=== PATIENT | female | born 1995 | race Caucasian/White ===

== ENCOUNTER 2017-09-11 05:26 | Emergency (ER) | payer OTHER ==
[~2017-09-11] VITALS: Ht 160 cm; Wt 85.0 kg
[2017-09-11] MEDS ORDERED: MAGN250T7 PO (05:36)
[2017-09-11] MEDS ORDERED: B2100TAB PO (05:36)
[2017-09-11] MEDS ORDERED: TYLE325T5 PO (05:36)
[2017-09-11] MEDS ORDERED: PROZ20CA11 PO (05:36)
[2017-09-11] MEDS ORDERED: NS 500 ML IV ONE (06:45)
[2017-09-11] MEDS ORDERED: PROMETHAZINE INJ 25 MG/ML VIAL (J2550) IV ONE (06:45)
[2017-09-11 06:54] LABS: BASO # 0.1 10^3/uL (0.0-0.2); BASO % 0.4 % (0.0-1.0); EOS # 0.3 10^3/uL (0.0-0.50); EOS % 2.6 % (0.0-3.0); IMMATURE GRANULOCYTE % 0.7 % (0-0); LYMPH # 2.8 10^3/uL (1.5-6.5); LYMPH % 20.8 % (24.0-44.0); MEAN CORPUSCULAR HEMOGLOBIN 31.3 pg (27.0-33.0); MEAN CORPUSCULAR HGB CONC 34.7 g/dl (32.0-36.5); MEAN CORPUSCULAR VOLUME 90.1 fl (80.0-96.0); MONO # 0.8 10^3/uL (0.0-0.8); MONO % 5.9 % (0.0-5.0); NEUTROPHILS # 9.2 10^3/uL (1.8-7.7); NEUTROPHILS % 69.6 % (36.0-66.0); PLATELET COUNT, AUTOMATED 365 10^3/uL (150-450); RED CELL DISTRIBUTION WIDTH 12.5 % (11.5-14.5); WHITE BLOOD COUNT 13.2 10^3/uL (4.0-10.0)
[2017-09-11] MEDS ORDERED: diphenhydrAMINE INJ 50MG/ML VIAL (J1200) IV ONE (07:00)
[2017-09-11 07:36] LABS: ALBUMIN 3.8 GM/DL (3.2-5.2); ALBUMIN/GLOBULIN RATIO 0.95 (1.00-1.93); ALKALINE PHOSPHATASE 94 U/L (45-117); ALT/SGPT 34 U/L (12-78); ANION GAP 7 MEQ/L (8-16); AST/SGOT 18 U/L (7-37); BILIRUBIN,TOTAL 0.3 MG/DL (0.2-1.0); BLOOD UREA NITROGEN 11 MG/DL (7-18); CALCIUM LEVEL 9.1 MG/DL (8.5-10.1); CARBON DIOXIDE LEVEL 28 MEQ/L (21-32); CHLORIDE LEVEL 104 MEQ/L (98-107); CREATININE FOR GFR 0.68 MG/DL (0.55-1.02); GLOMERULAR FILTRATION RATE > 60.0 (>60); GLUCOSE, FASTING 93 MG/DL (70-105); HCG, SERUM QUANTITATIVE 10485 MIU/ML; POTASSIUM SERUM 3.8 MEQ/L (3.5-5.1); SODIUM LEVEL 139 MEQ/L (136-145); TOTAL PROTEIN 7.8 GM/DL (6.4-8.2)
[2017-09-11] MEDS ORDERED: DRAM50CH4 PO ×2 (08:29→08:49)
[2017-09-11] MEDS ORDERED: KEFL500C17 PO ×2 (08:36→08:49)
--- NOTE | 2017-09-11 08:36 | REP ---
FIRST TRIMESTER ULTRASOUND: HISTORY: Abdominal pain. A single intrauterine is present. [place]-rump length is 0.2 cm corresponding to a gestational age of 5 weeks 5 days. heart rate is 106 beats per minute. There is no subchorionic hemorrhage. A 2.5 cm hemorrhagic cyst is present in the left ovary. The right ovary is normal in appearance. There is no fluid in the cul-de-sac. IMPRESSION: A single intrauterine is present with a gestational age of 5 weeks 5 days. A repeat examination is recommended at 19-20 weeks for further evaluation. Signed by Joaquin Solomon MD 09/11/2017 08:38 A
[2017-09-11 08:48] VITALS: BP 125/71
== END 2017-09-11 08:51 | disposition home or self-care (01) ==
LOC: M ED 05:26
DX: O26.891 Other specified pregnancy related conditions, first trimester (principal); G43.909 Migraine, unspecified, not intractable, without status migrainosus; Z3A.00 Weeks of gestation of pregnancy not specified
CPT/HCPCS: 76801; 76817; 80053; 81001; 83690; 84702; 85025; 93976; 96361; 96374; 96375; 99284; J1200

== ENCOUNTER 2018-03-16 06:27 | Inpatient (IN) | payer OTHER ==
[2018-03-16] MEDS: LR 1,000 ML IV ×2 (08:20→16:38)
[2018-03-16 08:30] LABS: BASO % 0.2 % (0.0-1.0); EOS # 0.2 10^3/uL (0.0-0.50); EOS % 2.2 % (0.0-3.0); HEMOGLOBIN 12.7 g/dl (12.0-15.5); IMMATURE GRANULOCYTE % 0.6 % (0-3.0); LYMPH # 2.5 10^3/uL (1.5-6.5); MEAN CORPUSCULAR HEMOGLOBIN 30.6 pg (27.0-33.0); MEAN CORPUSCULAR HGB CONC 33.4 g/dl (32.0-36.5); MEAN CORPUSCULAR VOLUME 91.6 fl (80.0-96.0); MONO % 8.7 % (0.0-5.0); NEUTROPHILS # 7.2 10^3/uL (1.8-7.7); NEUTROPHILS % 65.3 % (36.0-66.0); PLATELET COUNT, AUTOMATED 284 10^3/uL (150-450); RED BLOOD COUNT 4.15 10^6/uL (4.00-5.40); RED CELL DISTRIBUTION WIDTH 14.1 % (11.5-14.5)
[2018-03-16] MEDS: NIFEdipine 10 MG CAP PO ×3 (08:31→20:42)
[2018-03-16] MEDS: AMPICILLIN SOD 2 GM in APPROPRIATE DILUENT 20 ML IV (08:33)
[2018-03-16 08:38] LABS: AMORPHOUS SEDIMENT SMALL (NEGATIVE); APPEARANCE, URINE HAZY (CLEAR); BACTERIA, URINE AUTO NEGATIVE (NEGATIVE); BILIRUBIN, URINE AUTO NEGATIVE (NEGATIVE); BLOOD, URINE BLOOD NEGATIVE (NEGATIVE); COLOR, URINE YELLOW (YELLOW); GLUCOSE, URINE (UA) AUTO NEGATIVE (NEGATIVE); KETONE, URINE AUTO NEGATIVE (NEGATIVE); LEUKOCYTE ESTERASE, URINE AUTO 2+ (NEGATIVE); MUCUS, URINE SMALL (NEGATIVE); NITRITE, URINE AUTO NEGATIVE (NEGATIVE); PROTEIN, URINE AUTO NEGATIVE (NEGATIVE); RBC, URINE AUTO 2 /HPF (0-3); SPECIFIC GRAVITY URINE AUTO 1.006 (1.002-1.035); SQUAMOUS EPITHELIAL CELL UR AU 4 /HPF (0-6); UROBILINOGEN, URINE AUTO 0.2 mg/dL (0.0-2.0); WBC, URINE AUTO 4 /HPF (0-3)
[2018-03-16] MEDS: BETAMETHASONE SOLUSPAN 6MG/ML INJ 5ML (J0702) IM (08:40)
[2018-03-16] MEDS: LACTATED RINGER'S 1000 ML IV (08:52)
[2018-03-16] MEDS: FAMOTIDINE 20 MG TAB PO (09:01)
[2018-03-16] MEDS: AMPICILLIN SOD 1 GM in APPROPRIATE DILUENT 10 ML IV ×3 (12:35→20:41)
[2018-03-16] MEDS: PRENATAL VITAMINS CHEWABLE TABLET PO (12:38)
[2018-03-16] MEDS: FERROUS SULFATE 325MG TAB PO (12:39)
[2018-03-16] MEDS: ACETAMINOPHEN TAB 650MG DOSE (2X325MG) PO ×2 (15:53→20:40)
[2018-03-16] MEDS: DOCUSATE SODIUM 100 MG CAP PO (22:29)
[2018-03-17] MEDS: AMPICILLIN SOD 1 GM in APPROPRIATE DILUENT 10 ML IV ×3 (00:30→08:30)
[2018-03-17] MEDS: LR 1,000 ML IV ×5 (02:20→17:28)
[2018-03-17] MEDS: NIFEdipine 10 MG CAP PO ×4 (03:01→19:53)
[2018-03-17] MEDS: FAMOTIDINE 20 MG TAB PO (08:46)
[2018-03-17] MEDS: FERROUS SULFATE 325MG TAB PO (08:48)
[2018-03-17] MEDS: BETAMETHASONE SOLUSPAN 6MG/ML INJ 5ML (J0702) IM (08:58)
[2018-03-17] MEDS: DOCUSATE SODIUM 100 MG CAP PO (09:12)
[2018-03-17] MEDS: PRENATAL VITAMINS CHEWABLE TABLET PO (09:12)
[2018-03-18] MEDS: NIFEdipine 10 MG CAP PO ×2 (02:00→09:17)
[2018-03-18] MEDS: FERROUS SULFATE 325MG TAB PO (09:16)
[2018-03-18] MEDS: FAMOTIDINE 20 MG TAB PO (09:16)
[2018-03-18] MEDS: PRENATAL VITAMINS CHEWABLE TABLET PO (09:16)
[2018-03-18] MEDS ORDERED: NIFEdipine 30 MG XL TAB PO (21:00)
== END 2018-03-18 10:40 | disposition home or self-care (01) | DRG 778 ==
LOC: M LDO 06:27 → M OBS 03-17 10:07 → M LDI 07:40
DX: O60.03 Preterm labor without delivery, third trimester (principal); E66.9 Obesity, unspecified; Z3A.33 33 weeks gestation of pregnancy; O99.214 Obesity complicating childbirth; O99.344 Other mental disorders complicating childbirth; O99.62 Diseases of the digestive system complicating childbirth; F41.9 Anxiety disorder, unspecified; F32.9 Major depressive disorder, single episode, unspecified; K21.9 Gastro-esophageal reflux disease without esophagitis; Z88.8 Allergy status to other drugs, medicaments and biological substances; Z79.899 Other long term (current) drug therapy

== ENCOUNTER 2018-04-20 22:07 | Inpatient (IN) | payer OTHER ==
[2018-04-20] MEDS: LACTATED RINGER'S 1000 ML IV (23:03)
[2018-04-20] MEDS ORDERED: LR 1,000 ML IV (23:03)
[2018-04-20 23:14] LABS: HEMATOCRIT 35.5 % (36.0-47.0); HEMOGLOBIN 12.5 g/dl (12.0-15.5); MEAN CORPUSCULAR HEMOGLOBIN 31.4 pg (27.0-33.0); MEAN CORPUSCULAR HGB CONC 35.2 g/dl (32.0-36.5); MEAN CORPUSCULAR VOLUME 89.2 fl (80.0-96.0); PLATELET COUNT, AUTOMATED 281 10^3/uL (150-450); RED BLOOD COUNT 3.98 10^6/uL (4.00-5.40); RED CELL DISTRIBUTION WIDTH 13.4 % (11.5-14.5); WHITE BLOOD COUNT 14.4 10^3/uL (4.0-10.0)
[2018-04-20] MEDS ORDERED: OXYTOCIN 30 UNITS IN 0.9% NaCl 500ML IV BAG (J2590) As Ordered (23:37)
[2018-04-20] MEDS ORDERED: FENTANYL 2MCG/ML ROPIVACAINE 0.2% IN 0.9% NACL 200ML IVBAG As Ordered (23:37)
[2018-04-21] MEDS ORDERED: FENTANYL/ROPIVACAINE/NACL BAG 200 ML EPIDURAL (01:00)
[2018-04-21] MEDS ORDERED: EPIDURAL COMMENT XX (01:00)
[2018-04-21] MEDS ORDERED: EPIDURAL/PCA KEYS XX (01:00)
[2018-04-21] MEDS ORDERED: LACTATED RINGER'S 1000 ML IV (01:00)
[2018-04-21] MEDS ORDERED: REFRIGERATOR IV KEYS XX (01:00)
[2018-04-21] MEDS ORDERED: ONDANSETRON 4MG/2ML VIAL (J2405) IV (01:00)
[2018-04-21] MEDS ORDERED: NALOXONE INJ 0.4 MG/1 ML VIAL (J2310) IV (01:00)
[2018-04-21] MEDS ORDERED: diphenhydrAMINE INJ 50MG/ML VIAL (J1200) IV (01:00)
[2018-04-21] MEDS ORDERED: ePHEDrine SULFATE 25 MG/5 ML(5MG/ML) SYRINGE IV (01:00)
[2018-04-21] MEDS ORDERED: OXYTOCIN DRIP 30 UNITS in APPROPRIATE DILUENT 1 EA IV (05:00)
[2018-04-21] MEDS ORDERED: BICITRA 30ML SOLN UDC PO (07:00)
[2018-04-21] MEDS ORDERED: BUPIVACAINE HCL 0.25% 10 ML VIAL SC (07:15)
[2018-04-21] MEDS ORDERED: ACETAMINOPHEN 650 MG SUPP PR (07:15)
[2018-04-21] MEDS ORDERED: AZITHROMYCIN INJ 500 MG, VIAL MATE ADAPTER 1 EACH in D5W 250 ML IV (07:15)
[2018-04-21 07:41] LABS: CORD GAS O2 SAT A 63.3 %
[2018-04-21 07:42] LABS: CORD GAS ABE V -3.5; CORD GAS HCO3 V 21.9 MEQ/L; CORD GAS O2 SAT V 80.9 %; CORD GAS PCO2 V 40.9 mmHg; CORD GAS PH V 7.347 UNITS; CORD GAS PO2 V 35.8 mmHg; CORD GAS SBC V 21.2 MEQ/L; CORD GAS TCO2 V 23.2 MEQ/L
[2018-04-21 07:44] LABS: CORD GAS ABE A -3.4; CORD GAS HCO3 A 23.8 MEQ/L; CORD GAS PCO2 A 50.8 mmHg; CORD GAS PH A 7.289 UNITS; CORD GAS SBC A 20.8 MEQ/L; CORD GAS TCO2 A 25.4 MEQ/L
[2018-04-21] MEDS ORDERED: METHYLERGONOVINE MALEATE 0.2 MG TAB PO (08:00)
[2018-04-21] MEDS ORDERED: DOCUSATE SODIUM 100 MG CAP PO (08:00)
[2018-04-21] MEDS ORDERED: MEASLES,MUMPS,RUBELLA VACCINE INJ (MMR-II) (90707) SC (08:00)
[2018-04-21] MEDS ORDERED: RHOGAM 300 MCG (1500 IU) INJ (J2790) IM (08:00)
[2018-04-21] MEDS ORDERED: DIBUCAINE 1% OINTMENT 30GM TOP (08:00)
[2018-04-21] MEDS ORDERED: ANUSOL HC CREAM 30GM TOP (08:00)
[2018-04-21] MEDS: PRENATAL VITAMINS CHEWABLE TABLET PO (12:02)
[2018-04-21] MEDS: ACETAMINOPHEN 500 MG TAB PO (12:03)
[2018-04-21] MEDS: SERTRALINE HCL 25 MG TABLET PO (12:26)
[2018-04-21] MEDS: IBUPROFEN 800 MG TAB PO (17:23)
[2018-04-22 07:33] LABS: HEMATOCRIT 31.2 % (36.0-47.0); HEMOGLOBIN 11.1 g/dl (12.0-15.5); MEAN CORPUSCULAR HEMOGLOBIN 31.8 pg (27.0-33.0); MEAN CORPUSCULAR HGB CONC 35.6 g/dl (32.0-36.5); MEAN CORPUSCULAR VOLUME 89.4 fl (80.0-96.0); PLATELET COUNT, AUTOMATED 266 10^3/uL (150-450); RED BLOOD COUNT 3.49 10^6/uL (4.00-5.40); RED CELL DISTRIBUTION WIDTH 14.1 % (11.5-14.5); WHITE BLOOD COUNT 14.5 10^3/uL (4.0-10.0)
[2018-04-22] MEDS: MOM 30ML SUSPENSION UDC PO (08:16)
[2018-04-22] MEDS: PRENATAL VITAMINS CHEWABLE TABLET PO (08:16)
[2018-04-22] MEDS: ACETAMINOPHEN 500 MG TAB PO (08:17)
[2018-04-22] MEDS: SERTRALINE HCL 25 MG TABLET PO (10:30)
[2018-04-22] MEDS: IBUPROFEN 800 MG TAB PO (16:47)
[2018-04-23] MEDS: PRENATAL VITAMINS CHEWABLE TABLET PO (08:13)
[2018-04-23] MEDS: SERTRALINE HCL 25 MG TABLET PO (08:14)
[2018-04-23] MEDS: IBUPROFEN 800 MG TAB PO (13:16)
== END 2018-04-23 14:00 | disposition home or self-care (01) | DRG 775 ==
LOC: M LDO 22:07 → M LDI 23:05 → M OBS 04-21 10:44
PROVIDERS: Obstetrics & Gynecology
PROC: 10D07Z6 Extraction of Products of Conception, Vacuum, Via Natural or Artificial Opening (ICD-10-PCS; principal; 2018-04-21)
PROC: 0KQM0ZZ Repair Perineum Muscle, Open Approach (ICD-10-PCS; 2018-04-21)
PROC: 0W8NXZZ Division of Female Perineum, External Approach (ICD-10-PCS; 2018-04-21)
DX: O99.214 Obesity complicating childbirth (principal); Z68.41 Body mass index [BMI] 40.0-44.9, adult; O70.1 Second degree perineal laceration during delivery; Z3A.38 38 weeks gestation of pregnancy; O75.81 Maternal exhaustion complicating labor and delivery; E66.9 Obesity, unspecified; Z37.0 Single live birth; O99.344 Other mental disorders complicating childbirth; F32.9 Major depressive disorder, single episode, unspecified

== ENCOUNTER 2018-04-29 23:11 | Observation (INO) | payer OTHER ==
[2018-04-30] MEDS: NS 1,000 ML IV (01:09)
[2018-04-30 01:25] LABS: BASO # 0.1 10^3/uL (0.0-0.2); BASO % 0.4 % (0.0-1.0); EOS # 0.4 10^3/uL (0.0-0.50); EOS % 2.9 % (0.0-3.0); HEMATOCRIT 37.7 % (36.0-47.0); IMMATURE GRANULOCYTE % 0.6 % (0-3.0); LYMPH % 32.2 % (24.0-44.0); MEAN CORPUSCULAR HGB CONC 34.5 g/dl (32.0-36.5); MEAN CORPUSCULAR VOLUME 89.8 fl (80.0-96.0); MONO % 7.7 % (0.0-5.0); NEUTROPHILS % 56.2 % (36.0-66.0); PLATELET COUNT, AUTOMATED 461 10^3/uL (150-450); RED CELL DISTRIBUTION WIDTH 13.1 % (11.5-14.5); WHITE BLOOD COUNT 12.5 10^3/uL (4.0-10.0)
[2018-04-30 01:31] LABS: BILIRUBIN, URINE MANUAL NEGATIVE (NEGATIVE); GLUCOSE, URINE (UA) MANUAL NEGATIVE (NEGATIVE); KETONE, URINE MANUAL NEGATIVE (NEGATIVE); NITRITE, URINE MANUAL RFX NEGATIVE (NEGATIVE); PROTEIN, URINE MANUAL REFLEX 3+ mg/dL (NEGATIVE); UROBILINOGEN, URINE MANUAL NORMAL (NORMAL)
[2018-04-30 01:32] LABS: BLOOD URINE MANUAL RFX POSITIVE (NEGATIVE)
[2018-04-30 01:35] LABS: LACTIC ACID SEPSIS PROTOCOL 1.2 MMOL/L (0.4-2.0)
[2018-04-30 01:35] LABS: ALBUMIN 3.3 GM/DL (3.2-5.2); ALBUMIN/GLOBULIN RATIO 0.83 (1.00-1.93); ALKALINE PHOSPHATASE 124 U/L (45-117); ALT/SGPT 30 U/L (12-78); ANION GAP 10 MEQ/L (8-16); AST/SGOT 18 U/L (7-37); BILIRUBIN,DIRECT < 0.1 MG/DL (0.0-0.2); BILIRUBIN,TOTAL 0.3 MG/DL (0.2-1.0); BLOOD UREA NITROGEN 14 MG/DL (7-18); CALCIUM LEVEL 9.2 MG/DL (8.5-10.1); CARBON DIOXIDE LEVEL 25 MEQ/L (21-32); CHLORIDE LEVEL 107 MEQ/L (98-107); CREATININE FOR GFR 0.63 MG/DL (0.55-1.30); GLOMERULAR FILTRATION RATE > 60.0 (>60); GLUCOSE, FASTING 92 MG/DL (70-100); MICROSCOPIC INDICATED? RFX YES (NO); POTASSIUM SERUM 4.3 MEQ/L (3.5-5.1); RBC, URINE TNTC /hpf (0-3); SODIUM LEVEL 142 MEQ/L (136-145); SQUAMOUS EPITHELIAL CELL URINE SMALL AMOUNT /hpf (SMALL AMT); TOTAL PROTEIN 7.3 GM/DL (6.4-8.2)
[2018-04-30 01:36] LABS: BACTERIA, URINE NONE SEEN; HYALINE CAST, URINE NONE SEEN /lpf (0-1); MICROSCOPIC EXAM PERFORMED; URINE COMMENT UNSPUN
[2018-04-30 01:44] LABS: INR 1.02; PARTIAL THROMBOPLASTIN TIME 32.2 SECONDS (25.4-37.6); PROTHROMBIN TIME 13.5 SECONDS (12.1-14.4)
[2018-04-30] MEDS ORDERED: MORPHINE 4 MG/ML 1ML VIAL/SYRINGE (J2270) As Ordered (01:52)
[2018-04-30] MEDS: MORPHINE 4 MG/ML 1ML VIAL/SYRINGE (J2270) IV (02:14)
[2018-04-30] MEDS ORDERED: ACETAMINOPHEN 500 MG TAB PO (03:00)
[2018-04-30] MEDS ORDERED: IBUPROFEN 800 MG TAB PO (03:00)
[2018-04-30] MEDS ORDERED: OXYTOCIN 30 UNITS IN 0.9% NaCl 500ML IV BAG (J2590) As Ordered (03:55)
[2018-04-30] MEDS: miSOPROStol 200 MCG TAB (S0191) PR (04:16)
[2018-04-30] MEDS: OXYTOCIN DRIP 30 UNITS in APPROPRIATE DILUENT 1 EA IV (04:16)
[2018-04-30] MEDS: ceFAZolin SOD 1 GM in D5W MINI-BAG PLUS 50 ML IV (05:24)
[2018-04-30] MEDS: DOCUSATE SODIUM 100 MG CAP PO (08:03)
[2018-04-30] MEDS: PRENATAL VITAMINS CHEWABLE TABLET PO (08:03)
[2018-04-30 10:03] LABS: HEMATOCRIT 34.3 % (36.0-47.0); HEMOGLOBIN 11.7 g/dl (12.0-15.5); MEAN CORPUSCULAR HGB CONC 34.1 g/dl (32.0-36.5); PLATELET COUNT, AUTOMATED 398 10^3/uL (150-450); RED BLOOD COUNT 3.77 10^6/uL (4.00-5.40); WHITE BLOOD COUNT 12.4 10^3/uL (4.0-10.0)
[2018-04-30] MEDS: METHYLERGONOVINE MALEATE 0.2 MG TAB PO ×2 (10:13→16:28)
[2018-04-30] MEDS: SERTRALINE HCL 50 MG TAB PO (12:25)
== END 2018-04-30 18:56 | disposition home or self-care (01) ==
LOC: M ED 23:11 → M ED INP 23:12 → M OBS 04-30 03:50
DX: O72.2 Delayed and secondary postpartum hemorrhage (principal); O99.345 Other mental disorders complicating the puerperium; Z79.899 Other long term (current) drug therapy; Z88.6 Allergy status to analgesic agent
CPT/HCPCS: J0690